=== PATIENT | male | born 1940 | race Two or more races ===

== ENCOUNTER 2017-09-19 10:15 | Outpatient (CLI) | payer OTHER | END 2017-09-19 15:08 | disposition home or self-care (01) | LOC: TOM 10:15 | DX: R91.1 Solitary pulmonary nodule (principal) ==

== ENCOUNTER 2017-10-16 19:42 | Inpatient (IN) | payer OTHER ==
[~2017-10-16] VITALS: Ht 188 cm; Wt 75.7 kg
== END 2017-10-24 20:19 | DRG 603 ==
LOC: ER 19:42 → MEDI 20:28 → SEC-K 20:28 → MEDI 10-18 04:37
PROC: B54DZZZ Ultrasonography of Bilateral Lower Extremity Veins (ICD-10-PCS; principal; 2017-10-17)
DX: L03.116 Cellulitis of left lower limb (principal); I87.2 Venous insufficiency (chronic) (peripheral); I83.893 Varicose veins of bilateral lower extremities with other complications; S80.822A Blister (nonthermal), left lower leg, initial encounter

== ENCOUNTER 2019-02-26 09:22 | Outpatient (CLI) | payer OTHER | END 2019-02-26 09:51 | disposition home or self-care (01) | LOC: SONOGRAMA 09:22 | DX: E04.0 Nontoxic diffuse goiter (principal); E06.2 Chronic thyroiditis with transient thyrotoxicosis; E03.8 Other specified hypothyroidism ==

== ENCOUNTER 2019-05-01 15:18 | Outpatient (CLI) | payer OTHER | END 2019-05-01 15:26 | disposition home or self-care (01) | LOC: LAB 15:18 | DX: I67.81 Acute cerebrovascular insufficiency (principal) ==

== ENCOUNTER 2019-05-13 10:20 | Outpatient (CLI) | payer OTHER | END 2019-05-13 10:30 | disposition home or self-care (01) | LOC: MRI 10:20 | DX: I67.81 Acute cerebrovascular insufficiency (principal) | CPT/HCPCS: 70553; A9575 ==

== ENCOUNTER 2021-02-28 09:57 | Outpatient (CLI) | payer OTHER | END 2021-02-28 09:58 | disposition home or self-care (01) | LOC: NUCLEAR 09:57 | PROVIDERS: ATTEND Urology | DX: C61 Malignant neoplasm of prostate (principal) | CPT/HCPCS: 78803; A9503 ==

== ENCOUNTER 2021-03-01 10:27 | Outpatient (CLI) | payer OTHER | END 2021-03-01 10:42 | disposition home or self-care (01) | LOC: TOM 10:27 | PROVIDERS: ATTEND Urology | DX: C61 Malignant neoplasm of prostate (principal) ==

== ENCOUNTER → 2024-12-16 07:11 | Outpatient (CLI) | payer OTHER | END | disposition home or self-care (01) | LOC: NUCLEAR 07:00 | PROVIDERS: ATTEND Internal Medicine Cardiovascular Disease | DX: I20.9 Angina pectoris, unspecified (principal) | CPT/HCPCS: 78452; 93017; A9500; J0153 ==